=== PATIENT | male | born 1970 | race Caucasian/White ===

== ENCOUNTER 2016-07-19 09:09 | Emergency (ER) | payer OTHER ==
[~2016-07-19] VITALS: Ht 175.3 cm; Wt 135.0 kg
[~2016-07-19 09:09] MED LIST: B-COCAP9 PO; CITA20TA4 PO; CYAN1000P SQ; ERGO2000 PO; HYDR-3129 PO; HYDR-4197 PO; LISI-366 PO; METF500 PO; METO50TA PO; MOTR200T PO; SIMV40 PO; TIZA4CAP PO; WELL150T PO
[2016-07-19 09:11] VITALS: BP 156/77; PULSE 94; RESP 17; TEMP 98.1; O2SAT 98
[2016-07-19] MEDS ORDERED: SODIUM CHLORIDE 0.9% FLUSH 10 ML FLUSH IV FLUSH PRN (09:30)
[2016-07-19] MEDS ORDERED: ONDANSETRON HCL 4 MG/2 ML VIAL IVP ONE (09:30)
[2016-07-19] MEDS ORDERED: KETOROLAC TROMETHAMINE 30 MG/ML (IVP) VIAL IV PUSH ONE (09:30)
--- NOTE | 2016-07-19 09:52 | PD ---
HPI Chief Complaint: Abdominal Pain Time Seen by Provider: 09:23 Travel History International Travel<30 days: No Contact w/Intl Traveler<30days: No Traveled to known affect area: No History of Present Illness HPI Pleasant 45-year-old male here with complaint of abdominal pain. Patient states that he has had approximately 1 month of bowel issues. Describes going to the bathroom with stool frequency, feeling as though he has to evacuate his bowels but when he does, there is nothing there. His stools haven't somewhat more loose than normal, especially over the last several days. He denies seeing any blood intermixed with the stool, but has had a scant amount of bright red blood on the toilet paper. Patient attributes this to hemorrhoids and/or abscess. He states that he has a perirectal abscess that has been draining scant amount of purulence and blood for several weeks to months duration. He was supposed to have this operated on, but cannot afford it. Patient now notes increasing lower abdominal discomfort, crampy in nature, moderate, primarily about the suprapubic region and spreading bilaterally. This does not extend into the groin. The patient denies any associated nausea, vomiting. No fevers or chills. No urinary symptoms. PFSH Past Medical History Arthritis: Yes Anxiety: No Depression: Yes Heart Rhythm Problems: No Cancer: No Cardiovascular Problems: No High Cholesterol: Yes Chest Pain: No Cerebrovascular Accident: No Diabetes: Yes Patient Takes Glucophage: Yes (METFORMIN) Diminished Hearing: No Endocrine: No Gastrointestinal Disorders: Yes (occ reflux) GERD: Yes Genitourinary: No Headaches: No Hepatitis: No Hiatal Hernia: No Hypertension: Yes Immune Disorder: No Musculoskeletal: Yes (poss arthritis) Neurologic: Yes (numbness tingling down left leg) Psychiatric: Yes (anxiety) Reproductive: No Respiratory: No Immunizations Current: No Migraines: No Seizures: No Thyroid Disease: No Ulcer: No Past Surgical History Abdominal Surgery: No AICD: No Body Medical Devices: hardware in the back Cardiac Surgery: No Ear Surgery: No Endocrine Surgery: No Eye Surgery: No Genitourinary Surgery: Yes (repair i and d of [facility]dr[facility] rectal absess) Gynecologic Surgery: No Joint Replacement: No Neurologic Surgery: No Oral Surgery: No Pacemaker: No Other Surgery: Yes (RODRIGO RECTAL SURGERY DUE TO ABSCESS ) Social History Alcohol Use: No Tobacco Use: No (QUIT 2 YEARS AGO ) Substance Use: No Allergies-Medications (Allergen,Severity, Reaction): Coded Allergies: Codeine (Verified Allergy, Intermediate, rash, 07/19/16) Reported Meds & Prescriptions Reported Meds & Active Scripts Active Reported Fentanyl Patch 72 HR (Fentanyl) 50 Mcg/Hr Patch 50 Mcg T-DERMAL Q72H Remove old patch when new one placed. Zocor (Simvastatin) 40 Mg Tab 40 Mg PO DAILY Metoprolol Tartrate 50 Mg Tab 50 Mg PO DAILY Metformin (Metformin HCl) 1,000 Mg Tab 1,000 Mg PO BIDPC With meals Lisinopril 40 Mg Tab 40 Mg PO DAILY [place] (Hydrocodone-Acetaminophen) 10-325 Mg Tab 1 Tab PO Q6H PRN Vitamin D2 (Ergocalciferol) 2,000 Unit Tab 2,000 Units PO DAILY Citalopram (Citalopram Hydrobromide) 20 Mg Tab 20 Mg PO DAILY Bupropion HCl 100 Mg Tab 100 Mg PO HS Super B Complex Maxi (B-Complex W/ Folic Acid) 1 Tab 1 Tab PO DAILY Review of Systems Except as stated in HPI: all other systems reviewed are Neg Physical Exam Narrative GENERAL: Obese male in no acute distress SKIN: Focused skin assessment warm/dry. HEAD: Normocephalic. EYES: No scleral icterus. No injection or drainage. ENT: Mucous membranes pink and moist. NECK: Supple CARDIOVASCULAR: Regular rate and rhythm. No murmur appreciated. RESPIRATORY: No accessory muscle use. Clear to auscultation. Breath sounds equal bilaterally. GASTROINTESTINAL: Abdomen soft, obese. Tenderness to palpation throughout the lower abdomen particularly in the right lower quadrant. GENITOURINARY: No palpable hernias. No scrotal, penile tenderness or lesions. Patient does have scant amount of pinkish blood draining from a old stab incision from a perirectal abscess incision and drainage, no purulence, fluctuance MUSCULOSKELETAL: Normal gait NEUROLOGICAL: Awake and alert. Normal speech. PSYCHIATRIC: Appropriate mood and affect; insight and judgment normal. Data Data Last Documented VS Vital Signs Date Time Temp Pulse Resp B/P Pulse Ox O2 Delivery O2 Flow Rate FiO2 07/19/16 10:08 78 18 123/62 98 Room Air 07/19/16 09:11 98.1 Orders Basic Metabolic Panel (Bmp) (07/19/16 09:29) Complete Blood Count With Diff (07/19/16 09:29) Urinalysis - C+S If Indicated (07/19/16 09:29) Ct Abd/Pel W/O Iv Contrast (07/19/16 09:29) Iv Access Insert/Monitor (07/19/16 09:29) Oximetry (07/19/16 09:29) Ondansetron Inj (Zofran Inj) (07/19/16 09:30) Sodium Chloride 0.9% Flush (Ns Flush) (07/19/16 09:30) Ketorolac Inj (Toradol Inj) (07/19/16 09:30) Labs Laboratory Tests Test 07/19/16 09:46 White Blood Count 12.0 TH/MM3 Red Blood Count 4.53 MIL/MM3 Hemoglobin 10.9 GM/DL Hematocrit 33.9 % Mean Corpuscular Volume 74.8 FL Mean Corpuscular Hemoglobin 24.2 PG Mean Corpuscular Hemoglobin 32.3 % Concent Red Cell Distribution Width 16.0 % Platelet Count 363 TH/MM3 Mean Platelet Volume 8.3 FL Neutrophils (%) (Auto) 82.9 % Lymphocytes (%) (Auto) 7.0 % Monocytes (%) (Auto) 8.6 % Eosinophils (%) (Auto) 1.1 % Basophils (%) (Auto) 0.4 % Neutrophils # (Auto) 9.9 TH/MM3 Lymphocytes # (Auto) 0.8 TH/MM3 Monocytes # (Auto) 1.0 TH/MM3 Eosinophils # (Auto) 0.1 TH/MM3 Basophils # (Auto) 0.0 TH/MM3 CBC Comment AUTO DIFF Differential Comment AUTO DIFF CONFIRMED Urine Color YELLOW Urine Turbidity HAZY Urine pH 5.5 Urine Specific [place] 1.027 Urine Protein TRACE mg/dL Urine Glucose (UA) 300 mg/dL Urine Ketones TRACE mg/dL Urine Occult Blood NEG Urine Nitrite NEG Urine Bilirubin NEG Urine Urobilinogen LESS THAN 2.0 MG/DL Urine Leukocyte Esterase NEG Urine RBC 2 /hpf Urine WBC 1 /hpf Urine Hyaline Casts 1 /lpf Urine Mucus FEW /lpf Microscopic Urinalysis Comment CULT NOT INDICATED Sodium Level 136 MEQ/L Potassium Level 3.7 MEQ/L Chloride Level 102 MEQ/L Carbon Dioxide Level 29.5 MEQ/L Anion Gap 5 MEQ/L Blood Urea Nitrogen 14 MG/DL Creatinine 0.96 MG/DL Estimat Glomerular Filtration 85 ML/MIN Rate Random Glucose 175 MG/DL Calcium Level 9.4 MG/DL [facility] Medical Decision Making Medical Screen Exam Complete: Yes Emergency Medical Condition: Yes Medical Record Reviewed: Yes Differential Diagnosis 45-year-old male here with complaint of abdominal pain, bowel frequency 1 month. Differential includes diverticulitis, appendicitis, perirectal abscess, pelvic abscess, UTI, colitis. Narrative Course Patient placed on monitor, IV established and blood obtained. Given 30 mg Toradol, 4 mg Zofran IV. CBC, BMP, urinalysis obtained and notable for WBC 12.0. CT abdomen and pelvis showed sigmoid diverticulitis. We'll treat with Cipro, Flagyl for home and outpatient referral. Diagnosis Primary Impression: Diverticulitis Qualified Code: K57.33 - Diverticulitis of large intestine without perforation or abscess with bleeding Referrals: Riley Howard MD call for appointment Call for perirectal abscess follow-up. [facility] call for appointment General Surgeon call for appointment Patient Instructions: Diverticulitis (ED), Diverticulitis Diet (ED), General Instructions Additional Instructions: Antibiotics as prescribed. Vocation's as needed. Follow-up with primary care provider to establish care in general surgeon for further treatment of perirectal abscess. Med/Other Pt SpecificInfo: Prescription(s) given Scripts Hydrocodone-Acetaminophen ([place])5-325 mg Tab1-2 Tab PO Q6H PRN (PAIN) #15 TAB Ref 0 Prov:Mariely Castro MD 07/19/16 Metronidazole (Flagyl)500 Mg [id number] Mg PO TID 7 Days Ref 0 Prov:Mariely Castro MD 07/19/16 Ciprofloxacin (Cipro)250 Mg [id number] Mg PO BID 7 Days Ref 0 Prov:Mariely Castro MD 07/19/16 Disposition: 01 DISCHARGE HOME Condition: Stable Mariely Castro MD July 19, 2016 09:52
[2016-07-19 10:01] LABS: AUTOMATED NEUTROPHIL # 9.9 TH/MM3 (1.8-7.7); BASOPHIL % 0.4 % (0.0-2.0); EOSINOPHIL # 0.1 TH/MM3 (0-0.4); EOSINOPHIL % 1.1 % (0.0-4.0); HEMATOCRIT 33.9 % (39.0-51.0); LYMPHOCYTE # 0.8 TH/MM3 (1.0-4.8); MEAN CELL VOLUME 74.8 FL (80.0-100.0); MEAN CORPUSCULAR HEMOGLOBIN 24.2 PG (27.0-34.0); MEAN CORPUSCULAR HGB CONC 32.3 % (32.0-36.0); MONO % 8.6 % (0.0-8.0); NEUT % 82.9 % (16.0-70.0); PLATELET COUNT 363 TH/MM3 (150-450); RED BLOOD COUNT 4.53 MIL/MM3 (4.50-5.90)
[2016-07-19 10:07] VITALS: O2SAT 98
[2016-07-19 10:08] VITALS: BP 123/62; PULSE 78; RESP 18; O2SAT 98
[2016-07-19 10:08] LABS: BLOOD, URINE NEG (NEG); COMMENT (UR) CULT NOT INDICATED; CULTURE IF INDICATED CULT NOT INDICATED; GLUCOSE,URINE 300 mg/dL (NEG); HEMO FLAGS AUTO DIFF; HYALINE CAST, URINE 1 /lpf (RARE); KETONE, URINE TRACE mg/dL (NEG); MUCUS URINE FEW /lpf (OCC); NITRITE,URINE NEG (NEG); PH, URINE 5.5 (5.0-8.5); URINE COLOR YELLOW (YELLW/STRAW)
[2016-07-19 10:22] LABS: BICARBONATE 29.5 MEQ/L (21.0-32.0); POTASSIUM 3.7 MEQ/L (3.5-5.1)
[2016-07-19 10:37] LABS: SCAN/DIFF AUTO DIFF CONFIRMED
[2016-07-19] MEDS ORDERED: METF1000 PO (10:44)
[2016-07-19] MEDS ORDERED: LISI40TA PO (10:44)
[2016-07-19] MEDS ORDERED: BUPR100T4 PO (10:44)
[2016-07-19] MEDS ORDERED: HYDR-3366 PO (10:44)
[2016-07-19] MEDS ORDERED: ERGO2000 PO (10:44)
[2016-07-19] MEDS ORDERED: SUPETAB20 PO (10:44)
[2016-07-19] MEDS ORDERED: CITA20TA4 PO (10:44)
[2016-07-19] MEDS ORDERED: FENT50DI T-DERMAL (10:44)
[2016-07-19] MEDS ORDERED: METO50TA PO (10:44)
[2016-07-19] MEDS ORDERED: ZOCO40TA PO (10:44)
--- NOTE | 2016-07-19 10:56 | RADRPT ---
EXAM DATE/TIME: 07/19/2016 10:35 [facility] COMPARISON: No previous studies available for comparison. INDICATIONS : Lower abdominal pain. ORAL CONTRAST: No oral contrast ingested. RADIATION DOSE: 27.83 CTDIvol (mGy) MEDICAL HISTORY : Diabetes mellitus type 2. Hypertension. SURGICAL HISTORY : Fusion, lumbar. ENCOUNTER: Initial ACUITY: 2 days PAIN SCALE: 7/10 LOCATION: lower quadrant TECHNIQUE: Volumetric scanning of the abdomen and pelvis was performed. Using automated exposure control and ad justment of the mA and/or kV according to patient size, radiation dose was kept as low as reasonably achievable to obtain optimal diagnostic quality images. FINDINGS: LOWER LUNGS: The visualized lower lungs are clear. LIVER: Homogeneous low density without lesion. There is no dilation of the biliary tree. No calcified gall stones. SPLEEN: Normal size without lesion. PANCREAS: Within normal limits. KIDNEYS: Normal in size and shape. There is no mass, stone, or hydronephrosis. ADRENAL GLANDS: Within normal limits. VASCULAR: There is no aortic aneurysm. BOWEL/MESENTERY: There is an acute inflammatory process involving the sigmoid colon. There is circumferential wall thi ckening. Stranding of the adjacent fat. Multiple diverticula noted. No dilatation of the bowel to sug gest obstruction. No perforation or abscess. ABDOMINAL WALL: Within normal limits. RETROPERITONEUM: There is no lymphadenopathy. BLADDER: No wall thickening or mass. REPRODUCTIVE: Within normal limits. INGUINAL: There is no lymphadenopathy or hernia. MUSCULOSKELETAL: Bilateral transpedicular posterior fixation at L5-S1. CONCLUSION: 1. Acute sigmoid diverticulitis. No obstruction, abscess, or perforation. Christian Darby Jr., MD on July 19, 2016 at 10:51 Board Certified Radiologist. This report was verified electronically.
[2016-07-19] MEDS ORDERED: NORC5TAB PO (10:59)
[2016-07-19] MEDS ORDERED: METR-1 PO (10:59)
[2016-07-19] MEDS ORDERED: CIPR250T52 PO (10:59)
== END 2016-07-19 11:11 | disposition home or self-care (01) ==
LOC: NEPD 09:09
DX: K57.33 Diverticulitis of large intestine without perforation or abscess with bleeding (principal); I10 Essential (primary) hypertension; E11.9 Type 2 diabetes mellitus without complications; E78.00 Pure hypercholesterolemia, unspecified; Z79.84 Long term (current) use of oral hypoglycemic drugs; Z87.39 Personal history of other diseases of the musculoskeletal system and connective tissue; Z86.59 Personal history of other mental and behavioral disorders; Z87.19 Personal history of other diseases of the digestive system; Z86.69 Personal history of other diseases of the nervous system and sense organs; Z87.891 Personal history of nicotine dependence
CPT/HCPCS: 74176; 80048; 81001; 85025; 96374; 96375; 99284; J1885; J2405

== ENCOUNTER → 2016-08-30 | Outpatient (CLI) | payer OTHER ==
[~2016-08-30] MED LIST changes: -B-COCAP9 PO; +BUPR100T4 PO; +CIPR250T52 PO; -CYAN1000P SQ; +DIATRIZOATE MEGLUM/DIATRIZOATE SOD 120 ML BTL (for RAD DIAG) RECTAL ONE; +FENT50DI T-DERMAL; -HYDR-3129 PO; +HYDR-3366 PO; -HYDR-4197 PO; -LISI-366 PO; +LISI40TA PO; +METF1000 PO; -METF500 PO; +METR-1 PO; -MOTR200T PO; +NORC5TAB PO; -SIMV40 PO; +SUPETAB20 PO; -TIZA4CAP PO; -WELL150T PO; +ZOCO40TA PO
--- NOTE | 2016-08-30 15:42 | RADRPT ---
EXAM DATE/TIME: 08/30/2016 14:51 [facility] COMPARISON: FISTULAGRAM LEFT, December 10, 2014, 10:00. INDICATIONS : Rectal abscess FLUORO TIME: 1.2 minutes IMAGE COUNT: 13 MEDICAL HISTORY : Diabetic, fistulagram SURGICAL HISTORY : None. ENCOUNTER: Initial ACUITY: >1 year PAIN SCORE: 3/10 LOCATION: Left buttock FINDINGS: A red rubber catheter was passed into the perianal fistula. Contrast was injected opacifying a subcu taneous cavity. No communication with the rectum is confirmed. CONCLUSION: 1. Subcutaneous fistula cavity which does not appear to communicate with the rectosigmoid colon. Óscar Lowery MD on August 30, 2016 at 15:30 Board Certified Radiologist. This report was verified electronically.
== END ==
LOC: HRAD 13:58
PROVIDERS: ATTEND Colon & Rectal Surgery
DX: K61.1 Rectal abscess (principal)
CPT/HCPCS: 76080; Q9963